=== PATIENT | male | born 1955 | race Caucasian/White ===

== ENCOUNTER 2022-03-21 16:48 | Emergency (ER) | payer MEDICARE, OTHER ==
[~2022-03-21] VITALS: Ht 177.8 cm; Wt 90.3 kg
--- NOTE | 2022-03-21 17:26 | NUR ---
BIBCARETAKER FOR SOB X 10 DAYS PER PT. DENIES COUGH, CP, FEVER. PT AAOX3, VSS. RR EVEN & UNLABORED. AWAITING EVAL BY ERMD. WILL CONT TO MONITOR.
--- NOTE | 2022-03-21 18:00 | NUR ---
DR. FIERRO AT FOR EVAL.
[2022-03-21 18:56] LABS: CALCIUM, SERUM 9.3 mg/dL (8.5-10.1); CARBON DIOXIDE 26 mmol/L (21-32); CHLORIDE 103 mmol/L (98-107); CREATININE 1.7 mg/dL (0.6-1.3); GLUCOSE 139 mg/dL (74-106); POTASSIUM 4.8 mmol/L (3.5-5.1); SODIUM SERUM 138 mmol/L (136-145); UREA NITROGEN, BLOOD 18 mg/dL (7-18)
[2022-03-21 19:53] LABS: BASOPHILS # (AUTO) 0.1 K/uL (0.0-0.2); BASOPHILS % (AUTO) 0.8 % (0.0-2.0); EOSINOPHILS % (AUTO) 4.7 % (0.0-6.0); HEMATOCRIT 45 % (39-51); HEMOGLOBIN 15.8 g/dL (13.5-17.5); LYMPHOCYTES # (AUTO) 2.9 K/uL (0.8-4.8); LYMPHOCYTES % (AUTO) 34.1 % (20.0-44.0); MEAN CORPUSCULAR HGB CONC 35 g/dl (31.0-36.0); MEAN CORPUSCULAR VOLUME 95 fL (80-96); MONOCYTES # (AUTO) 1.2 K/uL (0.1-1.30); MONOCYTES % (AUTO) 14.1 % (2.0-12.0); NEUTROPHILS # (AUTO) 3.9 K/uL (1.8-8.9); NEUTROPHILS % (AUTO) 46.3 % (43.0-81.0); PLATELET COUNT (AUTO) 161 K/uL (150-450); RED BLOOD CELL COUNT(AUTO) 4.75 MIL/uL (4.5-6.0); WHITE BLOOD COUNT (AUTO) 8.4 K/uL (4.3-11.0)
[2022-03-21] MEDS ORDERED: CT SWABBABLE VALVE TRANS SET 1 EA INFUS.SET MC ONE (20:29)
[2022-03-21] MEDS ORDERED: IV NS 0.9% 250 ML IV ONE (20:29)
[2022-03-21] MEDS ORDERED: IOHEXOL-350 100 ML VIAL IV ONE (20:29)
[2022-03-21] MEDS ORDERED: IV NS 0.9% 1,000 ML IV ONE (20:30)
--- NOTE | 2022-03-21 20:40 | NUR ---
PATIENT TAKEN FOR CT PULMONARY ANGIOGRAM
--- NOTE | 2022-03-21 20:55 | NUR ---
PATIENT BACK FROM CT
--- NOTE | 2022-03-21 23:06 | NUR ---
IV removed. Catheter intact and site benign. Pressure and 4x4 applied to site. No bleeding noted.Patient discharged to home in stable condition. Written and verbal after care instructions given. Patient verbalizes understanding of instruction.
[2022-03-21 23:07] VITALS: BP 135/85
== END 2022-03-21 23:08 | disposition home or self-care (01) ==
LOC: ER 16:50
DX: R06.02 Shortness of breath (principal); I10 Essential (primary) hypertension; F25.9 Schizoaffective disorder, unspecified; E78.5 Hyperlipidemia, unspecified
CPT/HCPCS: 36415; 71045; 71275; 80048; 80164; 84484; 85025; 85378; 93005; 96360; 99285; J7050; Q9967

== ENCOUNTER → 2022-03-21 | Emergency (ER) | payer MEDICARE, OTHER | END | disposition left against medical advice (07) | LOC: ER 16:27 | DX: Z53.21 Procedure and treatment not carried out due to patient leaving prior to being seen by health care provider (principal) ==

== ENCOUNTER 2022-08-10 13:00 | Emergency (ER) | payer MEDICARE, OTHER ==
[~2022-08-10] VITALS: Ht 177.8 cm; Wt 90.3 kg
--- NOTE | 2022-08-10 13:25 | NUR ---
TO ER BED 3. BIBS C/O ON & OFF SOB EVERYTIME HE "EXERT HIMSELF," HAS BEEN GETTING PROGRESSIVELY WORSE. PT ATTACHED TO MONITOR, SATTING AT 95% ON ROOM AIR. WARM BLANKET PROVIDED FOR COMFORT. AWAITING MD ORDERS.
--- NOTE | 2022-08-10 14:05 | NUR ---
TECH AT BEDSIDE FOR EKG
--- NOTE | 2022-08-10 14:12 | NUR ---
IV ESTABLISHED R HAND 20G. LABS DRAWN AND COLLECTED AT BEDSIDE.
[2022-08-10 14:23] LABS: BASOPHILS % (AUTO) 0.4 % (0.0-2.0); EOSINOPHILS % (AUTO) 1.2 % (0.0-6.0); HEMATOCRIT 46 % (39-51); HEMOGLOBIN 15.6 g/dL (13.5-17.5); LYMPHOCYTES # (AUTO) 2.7 K/uL (0.8-4.8); LYMPHOCYTES % (AUTO) 28.9 % (20.0-44.0); MEAN CORPUSCULAR HGB CONC 34 g/dl (31.0-36.0); MEAN CORPUSCULAR VOLUME 98 fL (80-96); MONOCYTES # (AUTO) 1.1 K/uL (0.1-1.30); NEUTROPHILS # (AUTO) 5.4 K/uL (1.8-8.9); NEUTROPHILS % (AUTO) 57.5 % (43.0-81.0); PLATELET COUNT (AUTO) 120 K/uL (150-450); WHITE BLOOD COUNT (AUTO) 9.3 K/uL (4.3-11.0)
[2022-08-10 15:03] LABS: CALCIUM, SERUM 9.5 mg/dL (8.5-10.1); CARBON DIOXIDE 30 mmol/L (21-32); CHLORIDE 103 mmol/L (98-107); CREATININE 1.9 mg/dL (0.6-1.3); GLUCOSE 148 mg/dL (74-106); POTASSIUM 4.7 mmol/L (3.5-5.1); SODIUM SERUM 139 mmol/L (136-145); UREA NITROGEN, BLOOD 20 mg/dL (7-18)
[2022-08-10 15:17] LABS: ALANINE AMINOTRANSFERASE 23 U/L (12-78); ALBUMIN 3.3 g/dL (3.4-5.0); ALKALINE PHOSPHATASE 60 U/L (46-116); ASPARTATE AMINOTRANSFERASE 24 U/L (15-37); BILIRUBIN,DIRECT 0.1 mg/dL (0.0-0.2); BILIRUBIN,TOTAL 0.4 mg/dL (0.2-1.0); TOTAL PROTEIN, SERUM 7.6 g/dL (6.4-8.2)
--- NOTE | 2022-08-10 15:44 | NUR ---
[facility] CALLED FOR TRANSPORT ETA 30 MINS PER CALI.
--- NOTE | 2022-08-10 16:08 | NUR ---
EMT AT BEDSIDE TO PICKUP PT
[2022-08-10 16:18] VITALS: BP 136/72
--- NOTE | 2022-08-10 16:18 | NUR ---
Patient discharged to [facility] via gurney in stable condition, accompanied by 2 emt. Written and verbal after care instructions given. Patient verbalizes understanding of instruction.
== END 2022-08-10 16:26 ==
LOC: ER 13:09
DX: R06.02 Shortness of breath (principal); I10 Essential (primary) hypertension; E78.5 Hyperlipidemia, unspecified; F20.9 Schizophrenia, unspecified
CPT/HCPCS: 36415; 71045-TC; 80048-TC; 80076-TC; 83880; 84484-TC; 85025-TC